=== PATIENT | male | born 1965 | race Caucasian/White ===

== ENCOUNTER 2025-03-29 14:09 | Day surgery (SDC) | payer BC ==
[~2025-03-29 14:09] MED LIST: EPINEPHrine 0.3 MG in Ophthalmic Irrigation Solution 500 ML IRR SCH
[2025-03-29] MEDS ORDERED: Cyclopentolate 1% Opth Drop 2 ML BOT ONE (15:13)
[2025-03-29] MEDS ORDERED: Maxitrol 0.1% Opth Oint 3.5 GM TUBE ONE (16:35)
[2025-03-29] MEDS ORDERED: PROPOFOL 200 MG/20 ML VIAL ONE (16:35)
[2025-03-29] MEDS ORDERED: Lidocaine 4% PF 5 ML AMP ONE (16:35)
== END 2025-03-29 18:15 | disposition home or self-care (01) ==
LOC: SDC 14:09
PROVIDERS: ATTEND Ophthalmology Retina Specialist
PROC: 08B53ZZ Excision of Left Vitreous, Percutaneous Approach (ICD-10-PCS; principal; 2025-03-29)
DX: H33.022 Retinal detachment with multiple breaks, left eye (principal); Z88.0 Allergy status to penicillin
CPT/HCPCS: 67025; J0166; J2250; J2704; J3010; J3301; J3490